=== PATIENT | female | born 1995 | race Caucasian/White ===

== ENCOUNTER 2018-07-10 20:46 | Emergency (ER) | payer OTHER ==
--- NOTE | 2018-07-10 21:04 | EDM.PDOC ---
ED HPI GENERAL MEDICAL PROBLEM - General Chief Complaint: ENT Problem Stated Complaint: SORE THROAT,FEVER Time Seen by Provider: 07/10/18 20:48 Source of Information: Reports: Patient History Limitations: Reports: No Limitations - History of Present Illness INITIAL COMMENTS - FREE TEXT/NARRATIVE: HISTORY AND PHYSICAL: History of present illness: Patient is a 23-year-old female who presents to the emergency room today with complaints of sore throat, fever and body aches. She denies any chest pain, shortness of breath or cough. Denies any abdominal pain, nausea, vomiting, diarrhea, constipation or dysuria. Denies any chance of . She has been able to eat and drink appropriately. Review of systems: As per history of present illness and below otherwise all systems reviewed and negative. Past medical history: As per history of present illness and as reviewed below otherwise noncontributory. Surgical history: As per history of present illness and as reviewed below otherwise noncontributory. Social history: See social history for further information Family history: As per history of present illness and as reviewed below otherwise noncontributory. Physical exam: General: Well-developed and well-nourished 23-year-old female. Alert and oriented. Nontoxic appearing and in no acute distress. HEENT: Atraumatic, normocephalic, pupils equal and reactive bilaterally, negative for conjunctival pallor or scleral icterus, mucous membranes moist, Right TM erythema with dull light reflex, no bulging. Left TMs normal, throat clear, neck supple, nontender, trachea midline. No drooling or trismus noted. No meningeal signs. No hot potato voice noted. Lungs: Clear to auscultation, breath sounds equal bilaterally, chest nontender. Heart: S1S2, regular rate and rhythm without overt murmur Abdomen: Soft, nondistended, nontender. Negative for masses or hepatosplenomegaly. Negative for costovertebral tenderness. Pelvis: Stable nontender. Genitourinary: Deferred. Rectal: Deferred. Skin: Intact, warm, dry. No lesions or rashes noted. Extremities: Atraumatic, negative for cords or calf pain. Neurovascular unremarkable. Neuro: Awake, alert, oriented. Cranial nerves II through XII unremarkable. Cerebellum unremarkable. Motor and sensory unremarkable throughout. Exam nonfocal. Diagnostics: Strep screening, influenza Therapeutics: None Prescription: Augmentin Phenergan with Codeine Impression: Otitis media, right Plan: 1. Standard contact precautions (covering mouth while coughing, avoid sharing drinking cups and eating utensils). Please make sure you're doing good handwashing as this is contagious. 2. Please start the antibiotic tonight. Take as directed. 3. Supportive care measures such as Tylenol and/or ibuprofen for pain and fever management.Encourage small frequent sips of fluids to prevent dehydration. 4. Follow-up with your filament shaper in the next 1-2 days. Return to the ED as needed and as discussed. Definitive disposition and diagnosis as appropriate pending reevaluation and review of above. throat Pain Score (Numeric/FACES): 5 - Related Data Allergies Allergy/AdvReac Type Severity Reaction Status Date / Time No Known Allergies Allergy Verified 07/10/18 21:06 Home Meds: Home Meds . [No Known Home Meds] 07/10/18 [History] ED ROS ENT - Review of Systems Review Of Systems: ROS reveals no pertinent complaints other than HPI. ED EXAM, ENT - Physical Exam Exam: See Below (See dictation) Course - Vital Signs Last Recorded V/S: Last Vital Signs Temp 98.2 F 07/10/18 21:06 Pulse 126 H 07/10/18 21:06 Resp 18 07/10/18 21:06 BP 132/80 07/10/18 21:06 Pulse Ox 97 07/10/18 21:06 - Orders/Labs/Meds Orders: Active Orders 24 hr Category Date Time Status CULTURE STREP A CONFIRMATION [] Stat Lab 07/10/18 21:00 Results STREP SCRN A RAPID W CULT CONF [RM] Stat Lab 07/10/18 21:00 Results Departure - Departure Time of Disposition: 21:46 Disposition: Home, Self-Care 01 Clinical Impression: Otitis media Qualifiers: Otitis media type: suppurative Chronicity: acute Laterality: right Recurrence: non-recurrent Spontaneous tympanic membrane rupture: without spontaneous rupture Qualified Code(s): H66.001 - Acute suppurative otitis media without spontaneous rupture of ear drum, right ear - Discharge Information Instructions: Otitis Media, Adult, [id number] Referrals: PCP,None [Primary Care Provider] - Forms: ED Department Discharge Additional Instructions: The following information is given to patients seen in the emergency department who are being discharged to home. This information is to outline your options for follow-up care. We provide all patients seen in our emergency department with a follow-up referral. The need for follow-up, as well as the timing and circumstances, are variable depending upon the specifics of your emergency department visit. If you don't have a primary care physician on staff, we will provide you with a referral. We always advise you to contact your personal physician following an emergency department visit to inform them of the circumstance of the visit and for follow-up with them and/or the need for any referrals to a consulting specialist. The emergency department will also refer you to a specialist when appropriate. This referral assures that you have the opportunity for follow-up care with a specialist. All of these measure are taken in an effort to provide you with optimal care, which includes your follow-up. Under all circumstances we always encourage you to contact your private physician who remains a resource for coordinating your care. When calling for follow-up care, please make the office aware that this follow-up is from your recent emergency room visit. If for any reason you are refused follow-up, please contact the [facility] Emergency Department at and asked to speak to the emergency department charge nurse. [facility] [address] [place] [id number] [place] [address] 1. Standard contact precautions (covering mouth while coughing, avoid sharing drinking cups and eating utensils). Please make sure you're doing good handwashing as this is contagious. 2. Please start the antibiotic tonight. Take as directed. 3. Supportive care measures such as Tylenol and/or ibuprofen for pain and fever management.Encourage small frequent sips of fluids to prevent dehydration. 4. Follow-up with your filament shaper in the next 1-2 days. Return to the ED as needed and as discussed. - My Orders Last 24 Hours: My Active Orders 07/10/18 21:00 CULTURE STREP A CONFIRMATION [RM] Stat STREP SCRN A RAPID W CULT CONF [RM] Stat - Assessment/Plan Last 24 Hours: My Active Orders 07/10/18 21:00 CULTURE STREP A CONFIRMATION [RM] Stat STREP SCRN A RAPID W CULT CONF [RM] Stat
== END 2018-07-10 21:55 | disposition home or self-care (01) ==
LOC: MW.ED 20:46
DX: H66.001 Acute suppurative otitis media without spontaneous rupture of ear drum, right ear (principal)
CPT/HCPCS: 87081; 87804; 87880-QW; 99283

== ENCOUNTER 2020-03-23 22:49 | Emergency (ER) | payer OTHER ==
[2020-03-23] MEDS ORDERED: Sodium Chloride 0.9% 10 ML Syringe FLUSH PRN (23:05)
[2020-03-23] MEDS ORDERED: Sodium Chloride 0.9% 2.5 ML Syringe FLUSH PRN (23:05)
[2020-03-23] MEDS ORDERED: diphenhydrAMINE 50 MG/ML SDV IVPUSH ONE (23:08)
[2020-03-23] MEDS ORDERED: Acetaminophen 325 MG Tab PO ONE (23:08)
[2020-03-23] MEDS ORDERED: cefTRIAXone 2 GM in Premix Bag 1 BAG IV ONE (23:08)
[2020-03-23] MEDS ORDERED: Metoclopramide 10 MG/2 ML SDV IVPUSH ONE (23:08)
--- NOTE | 2020-03-23 23:13 | EDM.PDOC ---
ED [facility] GENERAL MEDICAL PROBLEM - General Chief Complaint: Fever Stated Complaint: 15 WKS , FEVER, RT SIDE PAIN Time Seen by Provider: 03/23/20 22:58 - History of Present Illness INITIAL COMMENTS - FREE TEXT/NARRATIVE: HISTORY AND PHYSICAL: History of present illness: This 25-year-old female is currently 15 weeks and presents to the emergency department after having flu shot at her [facility]ANQUET CHEF's office. This after noon she developed suprapubic pain, fever, and tachycardia and started feeling worse. She took Tylenol around 5 PM but presents feeling ill. She has nausea, right-sided flank pain, suprapubic pain, and frequent urination. She denies any dysuria. No cough. No diarrhea. No vaginal bleeding or discharge. Her OB appointment today was essentially normal. No other associated signs or symptoms. No other modifying, aggravating or relieving factors. Review of systems: A 10-point review of systems, other than pertinent positives and negatives as stated per HPI, is otherwise negative. Past medical history: As per history of present illness and as reviewed below otherwise noncontributory. Surgical history: As per history of present illness and as reviewed below otherwise noncontributory. Social history: No reported history of drug or alcohol abuse. Family history: As per history of present illness and as reviewed below otherwise noncontributory. Physical exam: VITAL SIGNS: Reviewed. GENERAL: Appears moderately ill and is tachycardic to the 150s. HEAD: No signs of head trauma. EYES: Pupils are equal. Extraocular motions intact. EARS: Hearing grossly intact. MOUTH: Oropharynx is normal. NECK: No adenopathy, no JVD. CHEST: Chest with clear breath sounds bilaterally. No wheezes, rales, or rhonchi. CARDIAC: Regular rate and rhythm. Normal S1 and S2, without murmurs, gallops, or rubs. VASCULAR: Peripheral pulses normal and equal in all extremities. ABDOMEN: Gravid, soft otherwise, no masses other than a gravid uterus palpated easily at the level about the umbilicus, suprapubic tenderness is present. No rebound or guarding. Mild left-sided CVA tenderness. MUSCULOSKELETAL: Good range of motion of all major joints. Extremities without clubbing, cyanosis or edema. NEUROLOGIC EXAM: Alert and oriented x 3. No focal sensory or motor deficits. Speech normal. Follows commands. PSYCHIATRIC: Mood normal. SKIN: No rash or lesions. Initial Differential Diagnosis & Plan: Patient has acute febrile illness this is likely pyelonephritis, other etiologies considered including appendicitis, cystitis, reaction to her influenza vaccine, COVID-19 infection. I will give empiric antibiotics including 2 g of ceftriaxone, draw labs, I have activated code sepsis and started IV fluid resuscitation. UA, comprehensive metabolic panel, CBC, lactate, blood cultures pending. Definitive disposition and diagnosis as appropriate pending reevaluation and review of above. Right Abdomen Pain Score (Numeric/FACES): 7 - Related Data Allergies Allergy/AdvReac Type Severity Reaction Status Date / Time azithromycin Allergy Hives Verified 03/23/20 23:08 Home Meds: Home Meds Cyanocobalamin (Vitamin B12) [Vitamin B12] 1,000 mcg PO DAILY 03/23/20 [History] Ferrous Sulfate [Iron] 325 mg PO DAILY 03/23/20 [History] Ondansetron [Zofran] 4 mg PO DAILY 03/23/20 [History] Vits #93/Iron Fum/FA [ Formula Tablet] 1 tab PO DAILY 03/23/20 [History] Past Medical History HEENT History: Reports: None Cardiovascular History: Reports: None Gastrointestinal History: Reports: None Genitourinary History: Reports: None [facility] History: Reports: Musculoskeletal History: Reports: None Neurological History: Reports: None Psychiatric History: Reports: Anxiety, Depression Endocrine/Metabolic History: Reports: None Hematologic History: Reports: None Immunologic History: Reports: None Oncologic (Cancer) History: Reports: None Dermatologic History: Reports: None - Infectious Disease History Infectious Disease History: Reports: None - Past Surgical History Musculoskeletal Surgical History: Reports: Other (See Below) Other Musculoskeletal Surgeries/Procedures:: fracture femur Social & Family History - Family History Family Medical History: Noncontributory ED ROS GENERAL - Review of Systems Review Of Systems: See Below (noted) ED EXAM, SEPSIS - Physical Exam Exam: See Below (noted) ED SEPSIS PROCEDURES - Additional/Other Procedure(s) Other (Free Text) Procedure(s): PROCEDURE NOTE: Limited OB / Pelvic Ultrasound (transabdominal) Indication: Confirm a live IUP All images obtained and evaluated by me. Images archived and saved. Findings: 1. Uterus Identified 2. No significant Free Fluid Noted 3. Intrauterine identified 4. heart tones measured with M-mode 175 Interpretation: Live IUP Signed by Behzad Pereyra M.D. EKG INTERPRETATION EKG Interpretation Comments: 12 lead EKG interpretation Obtained: March 23, 2020 at 11:30 PM Rhythm: Sinus tachycardia Rate: 130 [place]: Normal Intervals: Normal ST/T Segments: No acute ischemic changes Interpretation: Sinus tachycardia Course - Vital Signs Last Recorded V/S: Last Vital Signs Temp 100.2 F 03/24/20 02:00 Pulse 110 H 03/24/20 02:00 Resp 20 03/24/20 02:00 BP 102/54 L 03/24/20 02:00 Pulse Ox 97 03/24/20 02:00 - Orders/Labs/Meds Orders: Active Orders 24 hr Category Date Time Status Blood Pressure Mgt: Sepsis [RC] Q15MX2 Care 03/23/20 23:06 Active Cardiac Monitoring [RC] CONTINUOUS Care 03/23/20 23:06 Active EKG Documentation Completion [RC] STAT Care 03/23/20 23:05 Active Overnight Pulse Oximetry [RC] Click to Edit Care 03/23/20 23:06 Active CULTURE BLOOD [BC] Stat Lab 03/23/20 23:15 Received CULTURE BLOOD [BC] Stat Lab 03/23/20 23:53 Received Sodium Chloride 0.9% [Saline Flush] Med 03/23/20 23:05 Active 10 ml FLUSH ASDIRECTED PRN Sodium Chloride 0.9% [Saline Flush] Med 03/23/20 23:05 Active 2.5 ml FLUSH ASDIRECTED PRN Blood Culture x2 Reflex Set [OM.PC] Stat Oth 03/23/20 23:06 Ordered Pulse Oximetry Continuous Monitoring [OM.PC] Routine Oth 03/23/20 23:05 Ordered Saline Lock Insert [OM.PC] Stat Oth 03/23/20 23:06 Ordered Severe Sepsis Onset Time [OM.PC] Stat Oth 03/23/20 23:06 Ordered Medication Orders Sodium Chloride (Saline Flush) 10 ml FLUSH ASDIRECTED PRN PRN Reason: Keep Vein Open Sodium Chloride (Saline Flush) 2.5 ml FLUSH ASDIRECTED PRN PRN Reason: Keep Vein Open Labs: Laboratory Tests 03/23/20 03/23/20 03/23/20 Range/Units 23:08 23:15 23:15 WBC 8.99 (4.0-11.0) K/uL RBC 4.49 (4.30-5.90) M/uL Hgb 13.1 (12.0-16.0) g/dL Hct 39.3 (36.0-46.0) % MCV 87.5 (80.0-98.0) fL MCH 29.2 (27.0-32.0) pg MCHC 33.3 (31.0-37.0) g/dL RDW Std Deviation 42.1 (28.0-62.0) fl RDW Coeff of Oscar 13 (11.0-15.0) % Plt Count 167 (150-400) K/uL MPV 11.80 (7.40-12.00) fL Neut % (Auto) 90.4 H (48.0-80.0) % Lymph % (Auto) 4.3 L (16.0-40.0) % [place] % (Auto) 4.9 (0.0-15.0) % Eos % (Auto) 0.3 (0.0-7.0) % Baso % (Auto) 0.1 (0.0-1.5) % Neut # (Auto) 8.1 H (1.4-5.7) K/uL Lymph # (Auto) 0.4 L (0.6-2.4) K/uL [place] # (Auto) 0.4 (0.0-0.8) K/uL Eos # (Auto) 0.0 (0.0-0.7) K/uL Baso # (Auto) 0.0 (0.0-0.1) K/uL Nucleated RBC % 0.0 /100WBC Nucleated RBCs # 0 K/uL INR 1.01 Lactate (0.20-2.00) mmol/L Sodium (136-145) mmol/L Potassium (3.5-5.1) mmol/L Chloride (98-107) mmol/L Carbon Dioxide (21.0-32.0) mmol/L BUN (7.0-18.0) mg/dL Creatinine (0.6-1.0) mg/dL Est Cr Clr Drug Dosing mL/min Estimated GFR (MDRD) ml/min Glucose (74-106) mg/dL Calcium (8.5-10.1) mg/dL Total Bilirubin (0.2-1.0) mg/dL AST (15-37) IU/L ALT (14-63) IU/L Alkaline Phosphatase (46-116) U/L Total Protein (6.4-8.2) g/dL Albumin (3.4-5.0) g/dL Globulin (2.6-4.0) g/dL Albumin/Globulin Ratio (0.9-1.6) Urine Color YELLOW Urine Appearance CLEAR Urine pH 5.5 (5.0-8.0) Ur Specific Angelica 1.010 (1.001-1.035) Urine Protein NEGATIVE (NEGATIVE) mg/dL Urine Glucose (UA) NEGATIVE (NEGATIVE) mg/dL Urine Ketones NEGATIVE (NEGATIVE) mg/dL Urine Occult Blood NEGATIVE (NEGATIVE) Urine Nitrite NEGATIVE (NEGATIVE) Urine Bilirubin NEGATIVE (NEGATIVE) Urine Urobilinogen 0.2 (<2.0) EU/dL Ur Leukocyte Esterase NEGATIVE (NEGATIVE) Urine RBC NONE SEEN (0-2/HPF) Urine WBC 0-1 (0-5/HPF) Ur Epithelial Cells RARE (NONE-FEW) Urine Bacteria RARE (NEGATIVE) Urine Mucus LIGHT (NONE-MOD) 03/23/20 03/23/20 Range/Units 23:15 23:15 WBC (4.0-11.0) K/uL RBC (4.30-5.90) M/uL Hgb (12.0-16.0) g/dL Hct (36.0-46.0) % MCV (80.0-98.0) fL MCH (27.0-32.0) pg MCHC (31.0-37.0) g/dL RDW Std Deviation (28.0-62.0) fl RDW Coeff of Oscar (11.0-15.0) % Plt Count (150-400) K/uL MPV (7.40-12.00) fL Neut % (Auto) (48.0-80.0) % Lymph % (Auto) (16.0-40.0) % [place] % (Auto) (0.0-15.0) % Eos % (Auto) (0.0-7.0) % Baso % (Auto) (0.0-1.5) % Neut # (Auto) (1.4-5.7) K/uL Lymph # (Auto) (0.6-2.4) K/uL [place] # (Auto) (0.0-0.8) K/uL Eos # (Auto) (0.0-0.7) K/uL Baso # (Auto) (0.0-0.1) K/uL Nucleated RBC % /100WBC Nucleated RBCs # K/uL INR Lactate 1.6 (0.20-2.00) mmol/L Sodium 130 L (136-145) mmol/L Potassium 3.4 L (3.5-5.1) mmol/L Chloride 99 (98-107) mmol/L Carbon Dioxide 21.8 (21.0-32.0) mmol/L BUN 4 L (7.0-18.0) mg/dL Creatinine 0.7 (0.6-1.0) mg/dL Est Cr Clr Drug Dosing 119.47 mL/min Estimated GFR (MDRD) > 60.0 ml/min Glucose 87 (74-106) mg/dL Calcium 8.9 (8.5-10.1) mg/dL Total Bilirubin 0.4 (0.2-1.0) mg/dL AST 22 (15-37) IU/L ALT 23 (14-63) IU/L Alkaline Phosphatase 55 (46-116) U/L Total Protein 7.3 (6.4-8.2) g/dL Albumin 3.5 (3.4-5.0) g/dL Globulin 3.8 (2.6-4.0) g/dL Albumin/Globulin Ratio 0.9 (0.9-1.6) Urine Color Urine Appearance Urine pH (5.0-8.0) Ur Specific Angelica (1.001-1.035) Urine Protein (NEGATIVE) mg/dL Urine Glucose (UA) (NEGATIVE) mg/dL Urine Ketones (NEGATIVE) mg/dL Urine Occult Blood (NEGATIVE) Urine Nitrite (NEGATIVE) Urine Bilirubin (NEGATIVE) Urine Urobilinogen (<2.0) EU/dL Ur Leukocyte Esterase (NEGATIVE) Urine RBC (0-2/HPF) Urine WBC (0-5/HPF) Ur Epithelial Cells (NONE-FEW) Urine Bacteria (NEGATIVE) Urine Mucus (NONE-MOD) Meds: Medications Generic Name Dose Route Start Last Admin Trade Name Freq PRN Reason Stop Dose Admin Sodium Chloride 10 ml 03/23/20 23:05 Saline Flush FLUSH ASDIRECTED PRN Keep Vein Open Sodium Chloride 2.5 ml 03/23/20 23:05 Saline Flush FLUSH ASDIRECTED PRN Keep Vein Open Discontinued Medications Generic Name Dose Route Start Last Admin Trade Name Kelvin PRN Reason Stop Dose Admin Acetaminophen 975 mg 03/23/20 23:08 03/23/20 23:36 Tylenol PO 03/23/20 23:09 975 mg NOW ONE Administration Diphenhydramine HCl 25 mg 03/23/20 23:08 03/23/20 23:38 Benadryl IVPUSH 03/23/20 23:09 25 mg ONETIME ONE Administration Sodium Chloride 2,550 mls @ 2,550 mls/hr 03/23/20 23:05 03/23/20 23:41 Normal Saline IV 03/24/20 00:04 2,550 mls/hr BOLUS ONE Administration Protocol Ceftriaxone Sodium/Dextrose 2 50 mls @ 100 mls/hr 03/23/20 23:08 03/23/20 23:40 gm/ Premix IV 03/23/20 23:37 100 mls/hr ONETIME ONE Administration Iopamidol 100 ml 03/24/20 01:58 03/24/20 01:59 Isovue-370 (76%) IVPUSH 03/24/20 01:59 100 ml ONETIME STA Administration Metoclopramide HCl 10 mg 03/23/20 23:08 03/23/20 23:39 Reglan IVPUSH 03/23/20 23:09 10 mg ONETIME ONE Administration - Re-Assessments/Exams Free Text/Narrative Re-Assessment/Exam: 03/24/20 00:[address] Toyin Friedman about 45 minutes ago she recommended obtaining an ultrasound for appendicitis. I been at the bedside with the human performance technologist and were not able to locate the appendix. The right ovary is visible in the area and has good flow and no evidence of enlargement. Given these findings I obtained consent from the patient to obtain a CT abdomen pelvis with IV contrast to evaluate for appendicitis. She is [address] Friedman felt that this was a reasonable risk given the presentation of fever, tachycardia, severe right lower quadrant tenderness. The patient does not have a leukocytosis however this is a nonspecific finding in the setting of possible appendicitis. The patient's UA is essentially normal and there is no evidence of jairo lonephritis. We will obtain a CT scan at this time. The patient was given empiric antibiotics. Free Text/Narrative Re-Assessment/Exam: 03/24/20 02:25 Relieved to know that she does not have acute appendicitis. White count is normal. Because of her acute febrile illness is still unclear. This could be secondary to her vaccination and having a very brisk response, this could be secondary to a more insidious etiology. UA is negative. There is no cough. She does not have tachypnea or hypoxemia consistent with COVID-19 infection, there is no adnexal mass or evidence of ovarian torsion. No evidence of intrauterine infection. Given these findings we will send her home. She was given 2 g of ceftriaxone and blood cultures are pending. My diagnostic impression: 1. Acute febrile illness 2. Early sepsis/sirs criteria unclear etiology or source 3. Right lower quadrant tenderness with CT negative for acute appendicitis 4. 15 weeks Departure - Departure Time of Disposition: 02:27 Disposition: Home, Self-Care 01 Clinical Impression: Acute febrile illness, Right lower quadrant abdominal pain, - Discharge Information *PRESCRIPTION DRUG MONITORING PROGRAM REVIEWED*: Not Applicable *COPY OF PRESCRIPTION DRUG MONITORING REPORT IN PATIENT [place]: Not Applicable Instructions: Fever, Adult, [id number] Referrals: PCP,None [Primary Care Provider] - Forms: ED Department Discharge Additional Instructions: The following information is given to patients seen in the emergency department who are being discharged to home. This information is to outline your options for follow-up care. We provide all patients seen in our emergency department with a follow-up referral. The need for follow-up, as well as the timing and circumstances, are variable depending upon the specifics of your emergency department visit. If you don't have a primary care physician on staff, we will provide you with a referral. We always advise you to contact your personal physician following an emergency department visit to inform them of the circumstance of the visit and for follow-up with them and/or the need for any referrals to a consulting specialist. The emergency department will also refer you to a specialist when appropriate. This referral assures that you have the opportunity for follow-up care with a specialist. All of these measure are taken in an effort to provide you with optimal care, which includes your follow-up. Thank you for coming to the [facility] urgency department for your care today. It was Dr. Pereyra's pleasure to take care of you. [facility] [address] [place] [id number] [facility] [address] [place] [id number] Please follow-up with your [facility] physician or primary care doctor. We have done a comprehensive work-up and evaluation for your acute fever. It is unclear as to the reason you are having fever and could be secondary to your vaccination however this is unlikely. He did have significant right lower quadrant tenderness and we obtained a CT scan of your abdomen and pelvis to determine if he had appendicitis. Your CT scan was negative. Your urine test did not show evidence of infection. Your blood cultures are pending. You were given empiric antibiotics to help with your underlying symptoms. Return if you have worsening or any other concerns. We are always happy to see you. Under all circumstances we always encourage you to contact your private physician who remains a resource for coordinating your care. When calling for follow-up care, please make the office aware that this follow-up is from your recent emergency room visit. If for any reason you are refused follow-up, please contact the [facility] Emergency Department at and asked to speak to the emergency department charge nurse. Sepsis Event Note (ED) - Evaluation Sepsis Screening Result: No Definite Risk - Focused Exam Vital Signs: Vital Signs Temp Pulse Resp BP Pulse Ox 03/24/20 02:00 100.2 F 110 H 20 102/54 L 97 03/24/20 00:35 122 H 18 117/54 L 97 03/24/20 00:21 101.3 F H 03/23/20 23:45 124 H 20 127/71 97 03/23/20 23:03 101.1 F H 144 H 18 142/84 H 97 - My Orders Last 24 Hours: My Active Orders 03/23/20 23:05 EKG Documentation Completion [RC] STAT Sodium Chloride 0.9% [Saline Flush] 10 ml FLUSH ASDIRECTED PRN Sodium Chloride 0.9% [Saline Flush] 2.5 ml FLUSH ASDIRECTED PRN Pulse Oximetry Continuous Monitoring [OM.PC] Routine 03/23/20 23:06 Blood Pressure Mgt: Sepsis [RC] Q15MX2 Cardiac Monitoring [RC] CONTINUOUS Overnight Pulse Oximetry [RC] Click to Edit Blood Culture x2 Reflex Set [OM.PC] Stat Saline Lock Insert [OM.PC] Stat Severe Sepsis Onset Time [OM.PC] Stat 03/23/20 23:15 CULTURE BLOOD [BC] Stat 03/23/20 23:53 CULTURE BLOOD [BC] Stat - Assessment/Plan Last 24 Hours: My Active Orders 03/23/20 23:05 EKG Documentation Completion [RC] STAT Sodium Chloride 0.9% [Saline Flush] 10 ml FLUSH ASDIRECTED PRN Sodium Chloride 0.9% [Saline Flush] 2.5 ml FLUSH ASDIRECTED PRN Pulse Oximetry Continuous Monitoring [OM.PC] Routine 03/23/20 23:06 Blood Pressure Mgt: Sepsis [RC] Q15MX2 Cardiac Monitoring [RC] CONTINUOUS Overnight Pulse Oximetry [RC] Click to Edit Blood Culture x2 Reflex Set [OM.PC] Stat Saline Lock Insert [OM.PC] Stat Severe Sepsis Onset Time [OM.PC] Stat 03/23/20 23:15 CULTURE BLOOD [BC] Stat 03/23/20 23:53 CULTURE BLOOD [BC] Stat
[2020-03-23 23:59] LABS: BLOOD UREA NITROGEN,BUN 4 mg/dL (7.0-18.0); CARBON DIOXIDE,CO2 21.8 mmol/L (21.0-32.0); CHLORIDE,CL 99 mmol/L (98-107); GLUCOSE RANDOM 87 mg/dL (74-106); POTASSIUM,K 3.4 mmol/L (3.5-5.1); SODIUM,NA 130 mmol/L (136-145)
--- NOTE | 2020-03-24 01:26 | US ---
INDICATION: , fever TECHNIQUE: Ultrasound abdomen limited. Sonographic images of the right flank were obtained using pavon-scale and color Doppler images. COMPARISON: None FINDINGS: Liver: Normal in size and echotexture. No masses. No intrahepatic biliary dilatation. Gallbladder: No stones or sludge. Normal wall thickness. No pericholecystic fluid. Common bile duct: 3 mm. Pancreas: Normal. Right kidney: Normal in size. Normal echotexture and cortex. No masses, stones, or hydronephrosis. Vasculature: Proximal abdominal aorta and IVC are normal. Intrauterine gestation noted. Maternal right ovary unremarkable. Appendix not seen. IMPRESSION: 1. Appendix not seen with shadowing bowel gas in the right lower quadrant. 2. Otherwise unremarkable ultrasound of the right upper quadrant and right lower quadrant. Dictated by Spencer Thibodeaux MD @ Mar 24 2020 1:15AM Signed by Dr. Spencer Thibodeaux @ Mar 24 2020 1:26AM
[2020-03-24] MEDS ORDERED: Iopamidol 755 Mg/ML 100 ML Bottle IVPUSH STA (01:58)
--- NOTE | 2020-03-24 02:11 | CT ---
INDICATION: Right lower quadrant pain TECHNIQUE: Axial images were obtained from the diaphragm to the pubic symphysis. Examination is submitted for remote interpretation already performed per rubber gasket inspector trimmer recommendation. Reformats were obtained in the coronal and sagittal plane. IV Contrast: 100 cc Isovue 370 Oral Contrast: None COMPARISON: None. FINDINGS: Lower chest: Unremarkable. Liver: Unremarkable. Normal in size and attenuation. No masses. Gallbladder and bile ducts: Unremarkable. No stones or inflammation. No biliary dilatation. Spleen: Unremarkable. Normal in size without mass. Pancreas: Unremarkable. No mass or inflammation. Adrenal glands: Unremarkable. No nodules. Kidneys: Unremarkable. No masses, stones, or hydronephrosis. Vasculature: Unremarkable. GI tract: No dilated loops of large or small intestine. Appendix identified in the right lower quadrant measuring 6 millimeters with air seen to the level of the appendiceal tip. Pelvis: Bladder unremarkable. Enlarged uterus consistent with . Anterior placenta. Intrauterine gestation in vertex position. No adnexal mass seen. Bones: Intramedullary roque within the right femur. IMPRESSION: 1. No dilated loops of large or small intestine. Normal appendix. 2. No adnexal mass seen. 3. Enlarged uterus with intrauterine gestation. Please note that all CT scans at this facility use dose modulation, iterative reconstruction, and/or weight-based dosing when appropriate to reduce radiation dose to as low as reasonably achievable. Dictated by Spencer Thibodeaux MD @ Mar 24 2020 2:04AM Signed by Dr. Spencer Thibodeaux @ Mar 24 2020 2:09AM
== END 2020-03-24 02:40 | disposition home or self-care (01) ==
LOC: MW.ED 22:49
DX: O98.812 Other maternal infectious and parasitic diseases complicating pregnancy, second trimester (principal); A41.9 Sepsis, unspecified organism; O99.112 Other diseases of the blood and blood-forming organs and certain disorders involving the immune mechanism complicating pregnancy, second trimester; D72.829 Elevated white blood cell count, unspecified; R50.9 Fever, unspecified; Z88.1 Allergy status to other antibiotic agents; Z3A.15 15 weeks gestation of pregnancy
CPT/HCPCS: 36415; 74177; 76705; 80053; 81001; 83605; 85025; 85610; 87040; 93005; 96361; 96365; 96375; 99284; A9270; J0696; J1200; J2765; J7030; Q9967; 99285

== ENCOUNTER 2020-08-22 12:11 | Emergency (ER) | payer BC ==
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
--- NOTE | 2020-08-22 13:03 | CR ---
INDICATION: All TECHNIQUE: Lumbar spine 2 view. COMPARISON: None FINDINGS: Bones: Straightening of the lumbar spine with normal alignment. No fractures or significant bone lesions. Joints: Disc spaces and facets are unremarkable. Soft tissues: Unremarkable. Miscellaneous: Single gestation noted with cephalic presentation. IMPRESSION: No evidence of acute lumbar spine trauma. Single gestation noted with cephalic presentation. Dictated by Kahlil Romero MD @ Aug 22 2020 1:01PM Signed by Dr. Kahlil Romero @ Aug 22 2020 1:01PM
== END 2020-08-22 12:23 | disposition still patient (30) ==
LOC: MW.ED 12:11
DX: O99.891 Other specified diseases and conditions complicating pregnancy (principal); M54.5 Low back pain; O24.419 Gestational diabetes mellitus in pregnancy, unspecified control; Z88.1 Allergy status to other antibiotic agents; Z3A.36 36 weeks gestation of pregnancy; W10.8XXA Fall (on) (from) other stairs and steps, initial encounter; Y93.01 Activity, walking, marching and hiking
CPT/HCPCS: 72100; 72100-26; 82962; 99284; 99284-25

== ENCOUNTER 2020-09-10 08:22 | Inpatient (IN) | payer BC ==
[2020-09-10] MEDS ORDERED: Water For Irrigation,Sterile 1,000 ML Container IRR PRN (08:42)
[2020-09-10] MEDS ORDERED: Lidocaine 1% 50 ML MDV INJECT PRN (08:42)
[2020-09-10] MEDS ORDERED: Ampicillin 2 GM in Sodium Chloride 0.9% 100 ML IV ONE (08:42)
[2020-09-10] MEDS ORDERED: Nalbuphine 10 MG/1 ML Vial IVPUSH PRN (08:42)
[2020-09-10] MEDS ORDERED: Tranexamic Acid 1,000 MG in Sodium Chloride 0.9% 100 ML IV PRN (08:42)
[2020-09-10] MEDS ORDERED: Carboprost Tromethamine 250 MCG/1 ML Amp IM PRN (08:42)
[2020-09-10] MEDS ORDERED: Butorphanol 1 MG/ML SDV IVPUSH PRN (08:42)
[2020-09-10] MEDS ORDERED: Misoprostol 200 MCG Tab PO PRN (08:42)
[2020-09-10] MEDS ORDERED: Sodium Chloride 0.9% 10 ML Syringe FLUSH PRN (08:42)
[2020-09-10] MEDS ORDERED: Methylergonovine 0.2 MG/1 ML Amp IM PRN (08:42)
[2020-09-10] MEDS ORDERED: Sodium Chloride 0.9% 2.5 ML Syringe FLUSH PRN (08:42)
[2020-09-10] MEDS ORDERED: Sodium Chloride 0.9% 10 ML SDV IV PRN (08:42)
[2020-09-10] MEDS ORDERED: Oxytocin/0.9 % Sodium Chloride 30 UNIT/500 ML BAG IV SCH ×2 (08:45→09:00)
[2020-09-10] MEDS ORDERED: Terbutaline 1 MG/ML SDV SUBCUT PRN (08:48)
[2020-09-10] MEDS: Lactated Ringers 1,000 ML IV SCH ×2 (09:21→15:17)
[2020-09-10] MEDS ORDERED: Ampicillin 1 GM in Sodium Chloride 0.9% 50 ML IV SCH (13:00)
[2020-09-10] MEDS ORDERED: Ampicillin 1 GM Vial ONE (13:16)
[2020-09-10] MEDS ORDERED: Sodium Chloride 0.9% 50 ML ONE (13:17)
[2020-09-10] MEDS ORDERED: fentaNYL 100 MCG/2 ML SDV ONE ×2 (14:59→16:32)
[2020-09-10] MEDS ORDERED: Ropivacaine HCl/PF 100 ML ONE (15:00)
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
--- NOTE | 2020-09-10 15:25 | PCM.PRNOTE ---
- Free Text/Narrative Note: Anes Note Patient requests epidural for L&D. Siting position. Level L3-L4 midline approach. Sterile technique. Chloraprep scrub to lumbar area. Sterile fenestrated drape applied. Epidural space easily achieved single attempt with ease using ROSALINDA technique. ROSALINDA at 3 cm. Cath threaded 5 cm with ease. Cath secured at skin using sterile clear adhesive dressing. 1514 Test 3 cc 1.5% lido with epi negative. 1517 Load 10 cc 0.2% ropiviciane with 1 mcg cc fentanyl in slow divided doses. 1524 Pump started with 90 cc same solution. rate is 8 cc hr wiht 6 cc q 20 min prn bolus. Cordelia well. Time with patient [id number] Say Givens TRIPLE DRUM OPERATOR
[2020-09-10] MEDS ORDERED: Lidocaine 2% with EPINEPHrine 1:200,000 20 ML SDV ONE (15:27)
[2020-09-10] MEDS ORDERED: Bupivacaine 0.5% 30 ML SDV ONE (16:32)
--- NOTE | 2020-09-10 16:43 | PCM.PRNOTE ---
- Free Text/Narrative Note: Anes Note Patient reports incomplete analgesia left side. Epidural cath pulled back 1 cm and a new sterile dressing was applied. A top up dose of 100 mcg fentanyl plus 5 cc 0.5% bupivicaine was slowly injected in divided doses. Time with patient [id number] Say Givens CRNA
[2020-09-10] MEDS ORDERED: Docusate Sodium 100 MG Cap PO PRN (17:46)
[2020-09-10] MEDS ORDERED: Ibuprofen 400 MG Tab PO PRN (17:46)
[2020-09-10] MEDS ORDERED: Witch Hazel Medicated Pads 40/Jar TOP PRN (17:46)
[2020-09-10] MEDS ORDERED: Acetaminophen 500 MG Tab PO PRN (17:46)
[2020-09-10] MEDS ORDERED: Lanolin 100% Cream 7 GM Tube TOP PRN (17:46)
[2020-09-10] MEDS ORDERED: Benzocaine/Menthol 20%-0.5% Spray 78 GM Cannister TOP PRN (17:46)
[2020-09-10] MEDS ORDERED: Bisacodyl 10 MG Supp RECTAL PRN (17:46)
--- NOTE | 2020-09-10 17:55 | PCM.DEL ---
L & D Note - General Info Date of Service: 09/10/20 Mother's Due Date: 09/16/20 - Delivery Note Labor: Augmented by ARM, Augmented by Oxytocin Delivery Outcome: Livebirth Delivery Method: Spontaneous Vaginal Delivery-Single Nuchal Cord: None Anesthesia Type: None Anesthetic: Lidocaine (Xylocaine) 1% Plain Amniotic Fluid Description: Clear Episiotomy Type: None Laceration: 2nd Degree Suture type: Other (monocryl) Suture size: 3-0 Placenta: Intact Cord: 3 Vessels Estimated Blood Loss: 300 Resuscitation Needed: No Score 1 min: 8 Score 5 min: 9 Delivery Comments (Free Text/Narrative):: Patient delivered i was in the room with the assistance of RN Fiorella Phillips Live male delivered at 1646 , 8/9 weight 3360g - General Info Date of Service: 09/10/20 - Patient Data Weight - Most Recent: 87.997 kg Lab Results Last 24 Hours: Laboratory Results - last 24 hr 09/10/20 09/10/20 09/10/20 Range/Units 09:00 09:05 09:50 WBC 9.16 (4.0-11.0) K/uL RBC 4.36 (4.30-5.90) M/uL Hgb 12.0 (12.0-16.0) g/dL Hct 37.1 (36.0-46.0) % MCV 85.1 (80.0-98.0) fL MCH 27.5 (27.0-32.0) pg MCHC 32.3 (31.0-37.0) g/dL RDW Std Deviation 43.7 (28.0-62.0) fl RDW Coeff of Oscar 14 (11.0-15.0) % Plt Count 198 (150-400) K/uL MPV 12.60 H (7.40-12.00) fL Nucleated RBC % 0.0 /100WBC Nucleated RBCs # 0 K/uL POC Glucose (60-110) mg/dL SARS-CoV-2 RNA (WILL) NEGATIVE (NEGATIVE) Blood Type O POSITIVE Antibody Screen NEGATIVE 09/10/20 09/10/20 09/10/20 Range/Units 10:02 11:59 14:22 WBC (4.0-11.0) K/uL RBC (4.30-5.90) M/uL Hgb (12.0-16.0) g/dL Hct (36.0-46.0) % MCV (80.0-98.0) fL MCH (27.0-32.0) pg MCHC (31.0-37.0) g/dL RDW Std Deviation (28.0-62.0) fl RDW Coeff of Oscar (11.0-15.0) % Plt Count (150-400) K/uL MPV (7.40-12.00) fL Nucleated RBC % /100WBC Nucleated RBCs # K/uL POC Glucose 98 80 95 (60-110) mg/dL SARS-CoV-2 RNA (WILL) (NEGATIVE) Blood Type Antibody Screen 09/10/20 Range/Units 16:00 WBC (4.0-11.0) K/uL RBC (4.30-5.90) M/uL Hgb (12.0-16.0) g/dL Hct (36.0-46.0) % MCV (80.0-98.0) fL MCH (27.0-32.0) pg MCHC (31.0-37.0) g/dL RDW Std Deviation (28.0-62.0) fl RDW Coeff of Oscar (11.0-15.0) % Plt Count (150-400) K/uL MPV (7.40-12.00) fL Nucleated RBC % /100WBC Nucleated RBCs # K/uL POC Glucose 83 (60-110) mg/dL SARS-CoV-2 RNA (WILL) (NEGATIVE) Blood Type Antibody Screen Med Orders - Current: Current Medications Acetaminophen (Acetaminophen 500 Mg Tab) 500 mg PO Q4H PRN PRN Reason: Pain Acetaminophen (Acetaminophen 500 Mg Tab) 1,000 mg PO Q4H PRN PRN Reason: Pain Benzocaine/Menthol (Benzocaine/Menthol 20%-0.5% Martha 78 Gm Cannister) 78 gm TOP ASDIRECTED PRN PRN Reason: Perineal Comfort Measure Bisacodyl (Bisacodyl 10 Mg Supp) 10 mg RECTAL ONETIME PRN PRN Reason: Constipation Butorphanol Tartrate (Butorphanol 1 Mg/Ml Sdv) 1 mg IVPUSH Q1H PRN PRN Reason: Pain Carboprost Tromethamine (Carboprost Tromethamine 250 Mcg/1 Ml Amp) 250 mcg IM ASDIRECTED PRN PRN Reason: Post Hemorrhage Docusate Sodium (Docusate Sodium 100 Mg Cap) 100 mg PO BID PRN PRN Reason: Constipation Emollient Ointment (Lanolin 100% Cream 7 Gm Tube) 0 gm TOP ASDIRECTED PRN PRN Reason: Sore Nipples Oxytocin/Sodium Chloride (Oxytocin 30 Unit/500 Ml-Ns) 30 unit in 500 mls @ 500 mls/hr IV TITRATE [facility] Last Admin: 09/10/20 17:35 Dose: 250 mls/hr Documented by: Tranexamic Acid 1,000 mg/ (Sodium Chloride) 110 mls @ 660 mls/hr IV ONETIME PRN PRN Reason: Bleeding Last Admin: 09/10/20 17:29 Dose: 660 mls/hr Documented by: Lactated Ringer's (Ringers, Lactated) 1,000 mls @ 150 mls/hr IV ASDIRECTED [facility] Last Admin: 09/10/20 15:17 Dose: 150 mls/hr Documented by: Insulin Human Regular 100 unit (/ Sodium Chloride) 100 mls @ 1 mls/hr IV TITRATE [facility]; Protocol Oxytocin/Sodium Chloride (Oxytocin 30 Unit/500 Ml-Ns) 30 unit in 500 mls @ 2 mls/hr IV TITRATE [facility]; Protocol Last Titration: 09/10/20 17:13 Dose: 999 munits/min, 999 mls/hr Documented by: Ampicillin Sodium 1 gm/ Sodium (Chloride) 50 mls @ 100 mls/hr IV Q4H [facility] Last Admin: 09/10/20 13:15 Dose: 100 mls/hr Documented by: Ibuprofen (Ibuprofen 400 Mg Tab) 400 mg PO Q4H PRN PRN Reason: Pain Ibuprofen (Ibuprofen 800 Mg Tab) 800 mg PO Q6H PRN PRN Reason: Pain Lidocaine HCl (Lidocaine 1% 50 Ml Mdv) 50 ml INJECT ONETIME PRN PRN Reason: Laceration repair Methylergonovine Maleate (Methylergonovine 0.2 Mg/1 Ml Amp) 0.2 mg IM ASDIRECTED PRN PRN Reason: Post Hemorrhage Misoprostol (Misoprostol 200 Mcg Tab) 200 mcg PO ONETIME PRN PRN Reason: Post Hemorrhage Nalbuphine HCl (Nalbuphine 10 Mg/1 Ml Vial) 10 mg IVPUSH Q1H PRN PRN Reason: Pain (severe 7-10) Oxycodone HCl (Oxycodone 5 Mg Tab) 5 mg PO Q2H PRN PRN Reason: Pain Sodium Chloride (Sodium Chloride 0.9% 2.5 Ml Syringe) 2.5 ml FLUSH ASDIRECTED PRN PRN Reason: Keep Vein Open Sodium Chloride (Sodium Chloride 0.9% 10 Ml Sdv) 10 ml IV ASDIRECTED PRN PRN Reason: IV Use Sterile Water (Water For Irrigation,Sterile 1,000 Ml Container) 1,000 ml IRR ASDIRECTED PRN PRN Reason: delivery Terbutaline Sulfate (Terbutaline 1 Mg/Ml Sdv) 0.25 mg SUBCUT ASDIRECTED PRN PRN Reason: Tacysystole Witch Traci (Witch Traci Medicated Pads 40/Jar) 1 pad TOP ASDIRECTED PRN PRN Reason: comfort care Discontinued Medications Ampicillin Sodium (Ampicillin 1 Gm Vial) Confirm Administered Dose 1 gm .ROUTE .STK-MED ONE Stop: 09/10/20 13:17 Bupivacaine HCl (Bupivacaine 0.5% 30 Ml Sdv) Confirm Administered Dose 30 ml .ROUTE .STK-MED ONE Stop: 09/10/20 16:33 Fentanyl (Fentanyl 100 Mcg/2 Ml Sdv) Confirm Administered Dose 100 mcg .ROUTE .STK-MED ONE Stop: 09/10/20 15:00 Fentanyl (Fentanyl 100 Mcg/2 Ml Sdv) Confirm Administered Dose 100 mcg .ROUTE .STK-MED ONE Stop: 09/10/20 16:33 Ampicillin Sodium 2 gm/ Sodium (Chloride) 100 mls @ 200 mls/hr IV ONETIME ONE Stop: 09/10/20 09:11 Last Admin: 09/10/20 09:22 Dose: 200 mls/hr Documented by: Sodium Chloride (Normal Saline) Confirm Administered Dose 50 mls @ as directed .ROUTE .STK-MED ONE Stop: 09/10/20 13:18 Ropivacaine (Naropin 0.2%) Confirm Administered Dose 100 mls @ as directed .ROUTE .STK-MED ONE Stop: 09/10/20 15:01 Lidocaine/Epinephrine (Lidocaine 2% With Epinephrine 1:200,000 20 Ml Sdv) Confirm Administered Dose 20 ml .ROUTE .STK-MED ONE Stop: 09/10/20 15:28 - Problem List & Annotations (1) Vaginal delivery SNOMED Code(s): 943650520 Code(s): O80 - ENCOUNTER FOR FULL-TERM UNCOMPLICATED DELIVERY Status: Acute Current Visit: Yes - Problem List Review Problem List Initiated/Reviewed/Updated: Yes - My Orders Last 24 Hours: My Active Orders 09/10/20 08:48 Terbutaline [Brethine] 0.25 mg SUBCUT ASDIRECTED PRN 09/10/20 08:49 Bedrest Bathroom Privileges [RC] ASDIRECTED Communication Order [RC] ASDIRECTED Communication Order [RC] ASDIRECTED Notify Provider [RC] STAT 09/10/20 09:00 Oxytocin/0.9 % Sodium Chloride [Oxytocin 30 Unit/500 ML-NS] 30 unit in 500 ml IV TITRATE Medication Administration Instruction [OM.PC] Q3H 09/10/20 09:30 Insulin Regular, Human [NovoLIN R] 100 unit Sodium Chloride 0.9% [Normal Saline] 99 ml IV TITRATE 09/10/20 17:46 Patient Status [ADT] Routine May Shower [RC] ASDIRECTED Up ad Josefina [RC] ASDIRECTED Vital Signs [RC] PER UNIT ROUTINE Acetaminophen [Tylenol Extra Strength] 1,000 mg PO Q4H PRN Acetaminophen [Tylenol Extra Strength] 500 mg PO Q4H PRN Benzocaine/Menthol [Dermoplast Pain Relief 20%-0.5% Martha] 78 gm TOP ASDIRECTED PRN Docusate Sodium [Colace] 100 mg PO BID PRN Ibuprofen [Motrin] 400 mg PO Q4H PRN Ibuprofen [Motrin] 800 mg PO Q6H PRN Lanolin [Lansinoh HPA] See Dose Instructions TOP ASDIRECTED PRN bisacodyL [Dulcolax] 10 mg RECTAL ONETIME PRN oxyCODONE 5 mg PO Q2H PRN witch Traci [Tucks] 1 pad TOP ASDIRECTED PRN Assess Lochia [WOMSER] Per Unit Routine Assess Uterine Involution [WOMSER] Per Unit Routine Peripheral IV Discontinue [OM.PC] Routine Resuscitation Status Routine 09/11/20 05:11 HEMOGLOBIN/HEMATOCRIT,HH [HEME] Timed 09/11/20 07:00 GLUCOSE FASTING [CHEM] Routine - Assessment Assessment:: 25yo now P2 s/p PPD0 GDMA2 - Plan Plan:: Routine cares RH positive Rubella Immune GBS negative received adequate prophylaxis Elevated BP will do PIH labs
[2020-09-10 19:11] LABS: BLOOD UREA NITROGEN,BUN 9 mg/dL (7.0-18.0); CARBON DIOXIDE,CO2 21.7 mmol/L (21.0-32.0); CHLORIDE,CL 104 mmol/L (98-107); GLUCOSE RANDOM 81 mg/dL (74-106); SODIUM,NA 134 mmol/L (136-145)
[2020-09-10] MEDS: Acetaminophen 500 MG Tab PO PRN ×2 (19:24→23:56)
[2020-09-11] MEDS: oxyCODONE 5 MG Tab PO PRN ×2 (02:57→09:21)
--- NOTE | 2020-09-11 07:11 | PCM48HPAN ---
Post Anesthesia Note - EVALUATION WITHIN 48HRS OF ANESTHETIC Vital Signs in Normal Range: Yes Patient Participated in Evaluation: Yes Respiratory Function Stable: Yes Airway Patent: Yes Cardiovascular Function Stable: Yes Hydration Status Stable: Yes Pain Control Satisfactory: Yes Nausea and Vomiting Control Satisfactory: Yes Mental Status Recovered: Yes Vital Signs: Last Vital Signs Temp 36.6 C 09/11/20 04:00 Pulse 100 09/11/20 04:00 Resp 16 09/11/20 04:00 BP 129/76 09/11/20 04:00 Pulse Ox 95 09/11/20 04:00
[2020-09-11] MEDS: Ibuprofen 800 MG Tab PO PRN ×2 (07:45→15:24)
--- NOTE | 2020-09-11 07:59 | OR ---
SURGEON: KIP DICKEY DATE OF PROCEDURE: 09/10/2020 PREOPERATIVE DIAGNOSES: A 25-year-old G2, P1-0-0-1 at 39 weeks and 1 day for induction of labor secondary to gestational diabetes mellitus A2. POSTOPERATIVE DIAGNOSES: 1. A 25-year-old G2, P1-0-0-1 at 39 weeks and 1 day for induction of labor secondary to gestational diabetes mellitus A2. 2. Increased blood pressure noted intrapartum . ESTIMATED BLOOD LOSS: 300 mL. INTRAVENOUS FLUIDS: Pitocin running. Also tranexamic acid was given. PROCEDURE Normal spontaneous vaginal delivery Repair of second degree perineal laceration NOTES AND FINDINGS: A live male delivered at 1646, scores of 8 and 9. Weight is 3360 g. BRIEF HISTORY AND PROCEDURE: She is a 25-year-old GDMA2, managed with insulin. She came in for induction of labor. Induction of labor was started with Pitocin after she received 1 dose of GBS prophylaxis antibiotic. She then was AROMed after the second dose of the antibiotic. When she was AROMed, she was 3, 50, - 2. The patient then had a normal quick progress and became fully dilated. I was informed, and the patient had delivered about 5 minutes before i got to the room.RN Fiorella was present for the delivery. The was on maternal abdomen. The cord was already clamped and cut by the nurse, Fiorella. Placenta was then delivered by me via controlled cord traction. The perineum was inspected. A second-degree laceration was noted, and the area was infiltrated with 1% lidocaine, and repaired with 3.0 monocryl . Uterus was noted to have some clots in the lower uterine segment. Bimanual massaged was done. Tranexamic acid was given. The patient tolerated the procedure well. All instrument and pad counts were correct x2. FILOMENA / JUAN RAMON /[id number] MTDD
[2020-09-11] MEDS: Acetaminophen 500 MG Tab PO PRN (11:41)
--- NOTE | 2020-09-11 13:18 | PCM.PNPP ---
- General Info Date of Service: 09/11/20 Subjective Update: Patient seen at bedside , complains of increased lochia and occasional cramping . she has not been ambulating alot She is breasfeeding, BP is normal Functional Status: Reports: Pain Controlled, Tolerating Diet, Ambulating, Urinating - Review of Systems General: Reports: No Symptoms HEENT: Reports: No Symptoms Pulmonary: Reports: No Symptoms Cardiovascular: Reports: No Symptoms Gastrointestinal: Reports: No Symptoms Genitourinary: Reports: No Symptoms Musculoskeletal: Reports: No Symptoms Skin: Reports: No Symptoms Neurological: Reports: No Symptoms Psychiatric: Reports: No Symptoms - General Info Date of Service: 09/11/20 - Patient Data Vital Signs - Most Recent: Last Vital Signs Temp 37.0 C 09/11/20 08:03 Pulse 106 H 09/11/20 08:03 Resp 16 09/11/20 08:03 BP 126/81 09/11/20 08:03 Pulse Ox 96 09/11/20 08:03 Weight - Most Recent: 87.997 kg Lab Results - Last 24 Hours: Laboratory Results - last 24 hr 09/10/20 09/10/20 09/10/20 Range/Units 14:22 16:00 18:10 WBC (4.0-11.0) K/uL RBC (4.30-5.90) M/uL Hgb (12.0-16.0) g/dL Hct (36.0-46.0) % MCV (80.0-98.0) fL MCH (27.0-32.0) pg MCHC (31.0-37.0) g/dL RDW Std Deviation (28.0-62.0) fl RDW Coeff of Oscar (11.0-15.0) % Plt Count (150-400) K/uL MPV (7.40-12.00) fL Neutrophils % (Manual) (48.0-80.0) % Band Neutrophils % % Lymphocytes % (Manual) (16.0-40.0) % Monocytes % (Manual) (0.0-15.0) % Eosinophils % (Manual) (0.0-7.0) % Nucleated RBC % /100WBC Absolute Seg Neuts (1.4-5.7) Band Neutrophils # Lymphocytes # (Manual) (0.6-2.4) Monocytes # (Manual) (0.0-0.8) Eosinophils # (Manual) (0.0-0.7) Sodium (136-145) mmol/L Potassium (3.5-5.1) mmol/L Chloride (98-107) mmol/L Carbon Dioxide (21.0-32.0) mmol/L BUN (7.0-18.0) mg/dL Creatinine (0.6-1.0) mg/dL Est Cr Clr Drug Dosing mL/min Estimated GFR (MDRD) ml/min Glucose (74-106) mg/dL POC Glucose 95 83 (60-110) mg/dL Fasting Glucose (74-106) mg/dL Calcium (8.5-10.1) mg/dL Total Bilirubin (0.2-1.0) mg/dL AST (15-37) IU/L ALT (14-63) IU/L Alkaline Phosphatase (46-116) U/L Total Protein (6.4-8.2) g/dL Albumin (3.4-5.0) g/dL Globulin (2.6-4.0) g/dL Albumin/Globulin Ratio (0.9-1.6) Ur Random Creatinine 62.8 mg/dL U Random Total Protein 14.7 H (<11.9) mg/dL Protein/Creatinin Ratio 0.2 09/10/20 09/10/20 09/11/20 Range/Units 18:41 18:41 05:15 WBC 16.31 H (4.0-11.0) K/uL RBC 4.06 L (4.30-5.90) M/uL Hgb 11.3 L 10.9 L (12.0-16.0) g/dL Hct 34.2 L 33.7 L (36.0-46.0) % MCV 84.2 (80.0-98.0) fL MCH 27.8 (27.0-32.0) pg MCHC 33.0 (31.0-37.0) g/dL RDW Std Deviation 44.0 (28.0-62.0) fl RDW Coeff of Oscar 14 (11.0-15.0) % Plt Count 169 (150-400) K/uL MPV 12.00 (7.40-12.00) fL Neutrophils % (Manual) 92 H (48.0-80.0) % Band Neutrophils % 1 % Lymphocytes % (Manual) 4 L (16.0-40.0) % Monocytes % (Manual) 2 (0.0-15.0) % Eosinophils % (Manual) 1 (0.0-7.0) % Nucleated RBC % 0.0 /100WBC Absolute Seg Neuts 15.0 H (1.4-5.7) Band Neutrophils # 0.2 Lymphocytes # (Manual) 0.7 (0.6-2.4) Monocytes # (Manual) 0.3 (0.0-0.8) Eosinophils # (Manual) 0.2 (0.0-0.7) Sodium 134 L (136-145) mmol/L Potassium 4.0 (3.5-5.1) mmol/L Chloride 104 (98-107) mmol/L Carbon Dioxide 21.7 (21.0-32.0) mmol/L BUN 9 (7.0-18.0) mg/dL Creatinine 0.6 (0.6-1.0) mg/dL Est Cr Clr Drug Dosing 139.38 mL/min Estimated GFR (MDRD) > 60.0 ml/min Glucose 81 (74-106) mg/dL POC Glucose (60-110) mg/dL Fasting Glucose (74-106) mg/dL Calcium 8.6 (8.5-10.1) mg/dL Total Bilirubin 0.2 (0.2-1.0) mg/dL AST 18 (15-37) IU/L ALT 12 L (14-63) IU/L Alkaline Phosphatase 196 H (46-116) U/L Total Protein 5.7 L (6.4-8.2) g/dL Albumin 2.3 L (3.4-5.0) g/dL Globulin 3.4 (2.6-4.0) g/dL Albumin/Globulin Ratio 0.7 L (0.9-1.6) Ur Random Creatinine mg/dL U Random Total Protein (<11.9) mg/dL Protein/Creatinin Ratio 09/11/ Range/Units 05:15 WBC (4.0-11.0) K/uL RBC (4.30-5.90) M/uL Hgb (12.0-16.0) g/dL Hct (36.0-46.0) % MCV (80.0-98.0) fL MCH (27.0-32.0) pg MCHC (31.0-37.0) g/dL RDW Std Deviation (28.0-62.0) fl RDW Coeff of Oscar (11.0-15.0) % Plt Count (150-400) K/uL MPV (7.40-12.00) fL Neutrophils % (Manual) (48.0-80.0) % Band Neutrophils % % Lymphocytes % (Manual) (16.0-40.0) % Monocytes % (Manual) (0.0-15.0) % Eosinophils % (Manual) (0.0-7.0) % Nucleated RBC % /100WBC Absolute Seg Neuts (1.4-5.7) Band Neutrophils # Lymphocytes # (Manual) (0.6-2.4) Monocytes # (Manual) (0.0-0.8) Eosinophils # (Manual) (0.0-0.7) Sodium (136-145) mmol/L Potassium (3.5-5.1) mmol/L Chloride (98-107) mmol/L Carbon Dioxide (21.0-32.0) mmol/L BUN (7.0-18.0) mg/dL Creatinine (0.6-1.0) mg/dL Est Cr Clr Drug Dosing mL/min Estimated GFR (MDRD) ml/min Glucose (74-106) mg/dL POC Glucose (60-110) mg/dL Fasting Glucose 77 (74-106) mg/dL Calcium (8.5-10.1) mg/dL Total Bilirubin (0.2-1.0) mg/dL AST (15-37) IU/L ALT (14-63) IU/L Alkaline Phosphatase (46-116) U/L Total Protein (6.4-8.2) g/dL Albumin (3.4-5.0) g/dL Globulin (2.6-4.0) g/dL Albumin/Globulin Ratio (0.9-1.6) Ur Random Creatinine mg/dL U Random Total Protein (<11.9) mg/dL Protein/Creatinin Ratio Med Orders - Current: Current Medications Acetaminophen (Acetaminophen 500 Mg Tab) 500 mg PO Q4H PRN PRN Reason: Pain Acetaminophen (Acetaminophen 500 Mg Tab) 1,000 mg PO Q4H PRN PRN Reason: Pain Last Admin: 09/11/20 11:41 Dose: 1,000 mg Documented by: Benzocaine/Menthol (Benzocaine/Menthol 20%-0.5% [place] 78 Gm Cannister) 78 gm TOP ASDIRECTED PRN PRN Reason: Perineal Comfort Measure Last Admin: 09/10/20 19:29 Dose: 1 canister Documented by: Bisacodyl (Bisacodyl 10 Mg Supp) 10 mg RECTAL ONETIME PRN PRN Reason: Constipation Butorphanol Tartrate (Butorphanol 1 Mg/Ml Sdv) 1 mg IVPUSH Q1H PRN PRN Reason: Pain Carboprost Tromethamine (Carboprost Tromethamine 250 Mcg/1 Ml Amp) 250 mcg IM ASDIRECTED PRN PRN Reason: Post Hemorrhage Docusate Sodium (Docusate Sodium 100 Mg Cap) 100 mg PO BID PRN PRN Reason: Constipation Last Admin: 09/10/20 19:28 Dose: 100 mg Documented by: Emollient Ointment (Lanolin 100% Cream 7 Gm Tube) 0 gm TOP ASDIRECTED PRN PRN Reason: Sore Nipples Last Admin: 09/10/20 19:29 Dose: 7 gm Documented by: Oxytocin/Sodium Chloride (Oxytocin 30 Unit/500 Ml-Ns) 30 unit in 500 mls @ 500 mls/hr IV TITRATE MADIHA Last Admin: 09/10/20 17:35 Dose: 250 mls/hr Documented by: Tranexamic Acid 1,000 mg/ (Sodium Chloride) 110 mls @ 660 mls/hr IV ONETIME PRN PRN Reason: Bleeding Last Admin: 09/10/20 17:29 Dose: 660 mls/hr Documented by: Lactated Ringer's (Ringers, Lactated) 1,000 mls @ 150 mls/hr IV ASDIRECTED MADIHA Last Admin: 09/10/20 15:17 Dose: 150 mls/hr Documented by: Insulin Human Regular 100 unit (/ Sodium Chloride) 100 mls @ 1 mls/hr IV TITRATE MADIHA; Protocol Oxytocin/Sodium Chloride (Oxytocin 30 Unit/500 Ml-Ns) 30 unit in 500 mls @ 2 mls/hr IV TITRATE MADIHA; Protocol Last Titration: 09/10/20 17:13 Dose: 999 munits/min, 999 mls/hr Documented by: Ampicillin Sodium 1 gm/ Sodium (Chloride) 50 mls @ 100 mls/hr IV Q4H MADIHA Last Admin: 09/10/20 13:15 Dose: 100 mls/hr Documented by: Ibuprofen (Ibuprofen 400 Mg Tab) 400 mg PO Q4H PRN PRN Reason: Pain Ibuprofen (Ibuprofen 800 Mg Tab) 800 mg PO Q6H PRN PRN Reason: Pain Last Admin: 09/11/20 07:45 Dose: 800 mg Documented by: Lidocaine HCl (Lidocaine 1% 50 Ml Mdv) 50 ml INJECT ONETIME PRN PRN Reason: Laceration repair Last Admin: 09/10/20 17:10 Dose: 50 ml Documented by: Methylergonovine Maleate (Methylergonovine 0.2 Mg/1 Ml Amp) 0.2 mg IM ASDIRECTED PRN PRN Reason: Post Hemorrhage Misoprostol (Misoprostol 200 Mcg Tab) 200 mcg PO ONETIME PRN PRN Reason: Post Hemorrhage Nalbuphine HCl (Nalbuphine 10 Mg/1 Ml Vial) 10 mg IVPUSH Q1H PRN PRN Reason: Pain (severe 7-10) Oxycodone HCl (Oxycodone 5 Mg Tab) 5 mg PO Q2H PRN PRN Reason: Pain Last Admin: 09/11/20 09:21 Dose: 5 mg Documented by: Sodium Chloride (Sodium Chloride 0.9% 2.5 Ml Syringe) 2.5 ml FLUSH ASDIRECTED PRN PRN Reason: Keep Vein Open Sodium Chloride (Sodium Chloride 0.9% 10 Ml Sdv) 10 ml IV ASDIRECTED PRN PRN Reason: IV Use Sterile Water (Water For Irrigation,Sterile 1,000 Ml Container) 1,000 ml IRR ASDIRECTED PRN PRN Reason: delivery Terbutaline Sulfate (Terbutaline 1 Mg/Ml Sdv) 0.25 mg SUBCUT ASDIRECTED PRN PRN Reason: Tacysystole Witch Traci (Witch Traci Medicated Pads 40/Jar) 1 pad TOP ASDIRECTED PRN PRN Reason: comfort care Last Admin: 09/10/20 19:28 Dose: 1 tub Documented by: Discontinued Medications Ampicillin Sodium (Ampicillin 1 Gm Vial) Confirm Administered Dose 1 gm .ROUTE .STK-MED ONE Stop: 09/10/20 13:17 Bupivacaine HCl (Bupivacaine 0.5% 30 Ml Sdv) Confirm Administered Dose 30 ml .ROUTE .STK-MED ONE Stop: 09/10/20 16:33 Fentanyl (Fentanyl 100 Mcg/2 Ml Sdv) Confirm Administered Dose 100 mcg .ROUTE .STK-MED ONE Stop: 09/10/20 15:00 Fentanyl (Fentanyl 100 Mcg/2 Ml Sdv) Confirm Administered Dose 100 mcg .ROUTE .STK-MED ONE Stop: 09/10/20 16:33 Ampicillin Sodium 2 gm/ Sodium (Chloride) 100 mls @ 200 mls/hr IV ONETIME ONE Stop: 09/10/20 09:11 Last Admin: 09/10/20 09:22 Dose: 200 mls/hr Documented by: Sodium Chloride (Normal Saline) Confirm Administered Dose 50 mls @ as directed .ROUTE .STK-MED ONE Stop: 09/10/20 13:18 Ropivacaine (Naropin 0.2%) Confirm Administered Dose 100 mls @ as directed .ROUTE .STK-MED ONE Stop: 09/10/20 15:01 Lidocaine/Epinephrine (Lidocaine 2% With Epinephrine 1:200,000 20 Ml Sdv) Confirm Administered Dose 20 ml .ROUTE .STK-MED ONE Stop: 09/10/20 15:28 - Infant Interaction Support Person: - Recovery Exam Fundal Tone: Firm Fundal Level: At Umbilicus Fundal Placement: Midline Lochia Amount: Small Lochia Color: Rubra/Red Perineum Description: Other (see below) Other Perinuem Description: Second degree tear,repaired Episiotomy/Laceration: Approximated Bladder Status: Voiding Urinary Elimination: Voided - Exam General: Alert HEENT: Pupils Equal Lungs: Clear to Auscultation Cardiovascular: Regular Rate, Regular Rhythm GI/Abdominal Exam: Normal Bowel Sounds Extremities: Normal Inspection Neurological: No New Focal Deficit Psy/Mental Status: Alert - Problem List & Annotations (1) Vaginal delivery SNOMED Code(s): 369136442 Code(s): O80 - ENCOUNTER FOR FULL-TERM UNCOMPLICATED DELIVERY Status: Acute Current Visit: Yes - Problem List Review Problem List Initiated/Reviewed/Updated: Yes - My Orders Last 24 Hours: My Active Orders 09/10/20 17:46 Patient Status [ADT] Routine Vital Signs [RC] PER UNIT ROUTINE Acetaminophen [Tylenol Extra Strength] 1,000 mg PO Q4H PRN Acetaminophen [Tylenol Extra Strength] 500 mg PO Q4H PRN Benzocaine/Menthol [Dermoplast Pain Relief 20%-0.5% [place]] 78 gm TOP ASDIRECTED PRN Docusate Sodium [Colace] 100 mg PO BID PRN Ibuprofen [Motrin] 400 mg PO Q4H PRN Ibuprofen [Motrin] 800 mg PO Q6H PRN Lanolin [Lansinoh HPA] See Dose Instructions TOP ASDIRECTED PRN bisacodyL [Dulcolax] 10 mg RECTAL ONETIME PRN oxyCODONE 5 mg PO Q2H PRN witch Traci [Tucks] 1 pad TOP ASDIRECTED PRN Assess Lochia [WOMSER] Per Unit Routine Assess Uterine Involution [WOMSER] Per Unit Routine Peripheral IV Discontinue [OM.PC] Routine Resuscitation Status Routine - Assessment Assessment:: 25yo now P2 s/p PPD1 GDMA2 BP normalized Mild anemia hemoglobin 10 from 12 , asymptomatic - Plan Plan:: Routine cares Fasting 77mg/dl RH positive Rubella Immune PIH labs reviewed wnl H/H mild decrease Lysteda 1300mg X 1 dose to help with coagulation and bleeding Pain control as need Discharge home today
[2020-09-11] MEDS ORDERED: Methylergonovine 0.2 MG Tab PO ONE (13:20)
== END 2020-09-11 21:20 | disposition home or self-care (01) | DRG 560 ==
LOC: MW.OB 08:22 → OBSVTOIN 16:46 → MW.OB 19:58
PROVIDERS: ADMIT Obstetrics & Gynecology; ATTEND Obstetrics & Gynecology
PROC: 10E0XZZ Delivery of Products of Conception, External Approach (ICD-10-PCS; principal; 2020-09-10)
PROC: 10907ZC Drainage of Amniotic Fluid, Therapeutic from Products of Conception, Via Natural or Artificial Opening (ICD-10-PCS; 2020-09-10)
PROC: 0KQM0ZZ Repair Perineum Muscle, Open Approach (ICD-10-PCS; 2020-09-10)
PROC: 3E0R3BZ Introduction of Anesthetic Agent into Spinal Canal, Percutaneous Approach (ICD-10-PCS; 2020-09-10)
PROC: 00HU33Z Insertion of Infusion Device into Spinal Canal, Percutaneous Approach (ICD-10-PCS; 2020-09-10)
DX: O24.424 Gestational diabetes mellitus in childbirth, insulin controlled (principal); Z37.0 Single live birth; O99.02 Anemia complicating childbirth; D64.9 Anemia, unspecified; O99.824 Streptococcus B carrier state complicating childbirth; O70.1 Second degree perineal laceration during delivery; Z20.822 Contact with and (suspected) exposure to COVID-19; Z3A.39 39 weeks gestation of pregnancy
CPT/HCPCS: 36415; 51701; 59025; 59409; 80053; 82570; 82947; 82962; 84156; 85007; 85014; 85018; 85027; 86592; 86850; 86900; 86901; A9270-GY; J0290; J1815-GY; J2001; J2590; J2795; J3010; J3490; J7120; U0002

== ENCOUNTER 2022-04-14 13:37 | Emergency (ER) | payer BC ==
[2022-04-14] MEDS ORDERED: Orphenadrine 60 MG/2 ML Inj IM ONE (19:35)
[2022-04-14] MEDS ORDERED: Ketorolac 60 MG/2 ML SDV IM ONE (19:35)
== END 2022-04-14 20:12 | disposition home or self-care (01) ==
LOC: MW.ED 13:37
DX: M62.838 Other muscle spasm (principal); Z88.1 Allergy status to other antibiotic agents; Z91.018 Allergy to other foods; Z79.899 Other long term (current) drug therapy; Z86.16 Personal history of COVID-19
CPT/HCPCS: 81025; 96372; 99283; J1885; J2360; 99282

== ENCOUNTER 2023-02-27 10:36 | Day surgery (SDC) | payer BC ==
[~2023-02-27 10:36] MED LIST: Acetaminophen 1,000 MG in Premix Bag 1 BAG IV SCH; Lactated Ringers 1,000 ML IV SCH; Pregabalin 75 MG Cap PO SCH; ceFAZolin 2 GM in Sodium Chloride 0.9% 50 ML IV ONE
[2023-02-27] MEDS ORDERED: Propofol 200 MG/20 ML SDV ONE (13:41)
[2023-02-27] MEDS ORDERED: Ondansetron 4 MG/2 ML SDV ONE (13:41)
[2023-02-27] MEDS ORDERED: Dexamethasone 4 MG/ML 5 ML MDV ONE (13:41)
[2023-02-27] MEDS ORDERED: Lidocaine 2% 5 ML SDV ONE (13:41)
[2023-02-27] MEDS ORDERED: Ketorolac 30 MG/ML SDV ONE (13:41)
[2023-02-27] MEDS ORDERED: fentaNYL 100 MCG/2 ML SDV ONE (13:41)
[2023-02-27] MEDS ORDERED: Sugammadex Sodium 200 MG/2 ML VIAL ONE (13:41)
[2023-02-27] MEDS ORDERED: Rocuronium Bromide 50 MG/5 ML Syringe ONE (13:41)
[2023-02-27] MEDS ORDERED: Bupivacaine 0.5% 30 ML SDV ONE (13:47)
[2023-02-27] MEDS ORDERED: ceFAZolin 1 GM Vial ONE (14:14)
== END 2023-02-27 16:10 | disposition home or self-care (01) ==
LOC: MW.SDS 10:36
PROVIDERS: ATTEND Surgery
DX: L05.91 Pilonidal cyst without abscess (principal); F41.9 Anxiety disorder, unspecified; K58.9 Irritable bowel syndrome, unspecified; F32.A Depression, unspecified; Z88.1 Allergy status to other antibiotic agents
CPT/HCPCS: 11772; 81025; A9270; J0690; J1100; J1885; J2405; J2704; J3010; J3490; J7120

== ENCOUNTER 2024-05-09 12:44 | Inpatient (IN) | payer BC ==
[2024-05-09] MEDS ORDERED: Misoprostol 200 MCG Tab PO PRN (13:50)
[2024-05-09] MEDS ORDERED: Misoprostol 25 MCG (1/4 of 100 MCG) Tab VAG PRN (13:50)
[2024-05-09] MEDS ORDERED: Terbutaline 1 MG/ML SDV SUBCUT PRN (13:50)
[2024-05-09] MEDS ORDERED: Sodium Chloride 0.9% 20 ML SDV IV PRN (13:50)
[2024-05-09] MEDS ORDERED: Sodium Chloride 0.9% 2.5 ML Syringe FLUSH PRN (13:50)
[2024-05-09] MEDS ORDERED: Carboprost Tromethamine 250 MCG/1 mL Vial IM PRN (13:50)
[2024-05-09 14:02] LABS: HEMOGLOBIN 13.2 g/dL (12.0-16.0); MEAN CORPUSCULAR HEMOGLOBIN 29.7 pg (28.0-32.0); MEAN CORPUSCULAR HGB CONC 33.8 g/dL (32.0-36.0); MEAN CORPUSCULAR VOLUME 87.6 fL (83.0-99.0); MEAN PLATELET VOLUME 11.8 fL (9.4-12.3); PLATELET COUNT,PLT 182 K/uL (150-400); RED BLOOD CELL COUNT 4.45 M/uL (4.10-5.30); WHITE BLOOD CELL COUNT,WBC 11.74 K/uL (3.9-11.3)
[2024-05-09 14:08] LABS: CALCIUM 9.5 mg/dL (8.5-10.1); CARBON DIOXIDE,CO2 21.6 mmol/L (21.0-32.0); CREATININE 0.7 mg/dL (0.6-1.0); EST CRCL DRUG DOSING (CG) 115.32 mL/min
[2024-05-09] MEDS: Sodium Chloride 0.9% 1,000 ML IV SCH (14:29)
[2024-05-09] MEDS: Oxytocin/0.9 % Sodium Chloride 30 UNIT/500 ML BAG IV SCH (14:30)
[2024-05-09] MEDS: Butorphanol 2 MG/ML SDV IVPUSH PRN (18:53)
[2024-05-09] MEDS: Sodium Chloride 0.9% 10 ML Syringe FLUSH PRN (18:56)
[2024-05-09] MEDS: Water For Irrigation,Sterile 1,000 ML Container IRR PRN (19:45)
[2024-05-09] MEDS: Lidocaine 1% 50 ML MDV INJECT PRN (19:50)
[2024-05-09] MEDS ORDERED: Docusate Sodium 100 MG Cap PO PRN (20:10)
[2024-05-09] MEDS ORDERED: Simethicone 80 MG Tab.Chew PO PRN (20:10)
[2024-05-09 20:35] LABS: PH,UMBILICAL ARTERIAL 7.348 (7.18-7.38); PH,UMBILICAL VENOUS 7.333 (7.25-7.45)
[2024-05-09] MEDS: Methylergonovine 0.2 MG/1 ML Amp IM PRN (20:56)
[2024-05-09] MEDS: Acetaminophen 500 MG Tab PO PRN (20:56)
[2024-05-09] MEDS: Misoprostol 200 MCG Tab RECTAL PRN (20:56)
[2024-05-09] MEDS: Tranexamic Acid in NACL,ISO-OS 100 ML ONE (21:30)
[2024-05-09] MEDS: Morphine 4 MG/ML Syringe IVPUSH ONE (21:36)
[2024-05-09 22:17] LABS: BASOPHILS ABSOLUTE AUTO 0.05 K/uL (0.00-0.20); BASOPHILS PERCENT AUTO 0.3 % (0.0-1.0); EOSINOPHILS ABSOLUTE AUTO 0.02 K/uL (0.00-0.45); EOSINOPHILS PERCENT AUTO 0.1 % (0.0-6.0); HEMATOCRIT 35.9 % (37.0-47.0); HEMOGLOBIN 12.3 g/dL (12.0-16.0); IMMATURE GRAN ABSOLUTE AUTO 0.07 K/uL (0.00-0.05); IMMATURE GRAN PERCENT AUTO 0.4 % (0.0-0.4); LYMPHOCYTES ABSOLUTE AUTO 1.46 K/uL (1.00-4.80); LYMPHOCYTES PERCENT AUTO 8.1 % (24.0-44.0); MEAN CORPUSCULAR HEMOGLOBIN 30.1 pg (28.0-32.0); MEAN CORPUSCULAR HGB CONC 34.3 g/dL (32.0-36.0); MEAN CORPUSCULAR VOLUME 87.8 fL (83.0-99.0); MEAN PLATELET VOLUME 11.5 fL (9.4-12.3); MONOCYTES ABSOLUTE AUTO 0.73 K/uL (0.00-0.80); MONOCYTES PERCENT AUTO 4.1 % (0.0-8.0); NEUTROPHILS ABSOLUTE AUTO 15.67 K/uL (1.80-7.70); PLATELET COUNT,PLT 158 K/uL (150-400); RED BLOOD CELL COUNT 4.09 M/uL (4.10-5.30)
[2024-05-09 22:32] LABS: INR 0.99 (0.86-1.11); PTT,PARTIAL THROMBOPLSTIN TIME 28.4 SEC (23.9-30.7)
[2024-05-09 22:50] LABS: A/G RATIO 0.9 (0.9-1.6); ALBUMIN 2.8 g/dL (3.4-5.0); BILIRUBIN TOTAL 0.4 mg/dL (0.2-1.0); CALCIUM 8.7 mg/dL (8.5-10.1); CARBON DIOXIDE,CO2 22.9 mmol/L (21.0-32.0); CREATININE 0.7 mg/dL (0.6-1.0); EST CRCL DRUG DOSING (CG) 115.32 mL/min; POTASSIUM,K 4.4 mmol/L (3.5-5.1); PROTEIN TOTAL,TP 5.9 g/dL (6.4-8.2)
[2024-05-09] MEDS: ceFAZolin 2 GM in Sodium Chloride 0.9% 50 ML IV SCH (22:53)
[2024-05-10] MEDS: Ketorolac 30 MG/ML SDV IVPUSH STA (00:23)
[2024-05-10] MEDS: Oxytocin/0.9 % Sodium Chloride 30 UNIT/500 ML BAG IV SCH (01:30)
[2024-05-10] MEDS: Benzocaine/Menthol 20%-0.5% Spray 78 GM Cannister TOP PRN (06:52)
[2024-05-10] MEDS: Witch Hazel Medicated Pads 40/Jar TOP PRN (06:52)
[2024-05-10] MEDS: Lanolin 100% Cream 7 GM Tube TOP PRN (06:52)
[2024-05-10] MEDS: Tranexamic Acid in NACL,ISO-OS 1,000 MG/100 ML Bag IV ONE (07:04)
[2024-05-10 07:07] LABS: HEMOGLOBIN 10.2 g/dL (12.0-16.0); MEAN CORPUSCULAR HEMOGLOBIN 30.1 pg (28.0-32.0); MEAN CORPUSCULAR VOLUME 88.5 fL (83.0-99.0); MEAN PLATELET VOLUME 11.6 fL (9.4-12.3); PLATELET COUNT,PLT 143 K/uL (150-400); RED BLOOD CELL COUNT 3.39 M/uL (4.10-5.30); WHITE BLOOD CELL COUNT,WBC 12.59 K/uL (3.9-11.3)
[2024-05-10] MEDS: Morphine 4 MG/ML Syringe IM ONE (08:51)
[2024-05-10] MEDS: Morphine 4 MG/ML Syringe ONE (08:51)
[2024-05-10] MEDS: Prenatal Multivitamin with Calcium/Folic Acid/Iron Tab PO SCH (09:30)
[2024-05-10] MEDS: Sertraline 25 MG Tab PO SCH (09:30)
[2024-05-10] MEDS: Ferrous Sulfate 325 MG Tab PO SCH (09:30)
[2024-05-10] MEDS: Ondansetron 4 MG/2 ML SDV IVPUSH PRN (09:30)
[2024-05-10] MEDS: Ibuprofen 800 MG Tab PO PRN (10:36)
[2024-05-10] MEDS: Ondansetron 4 MG Tab.DIS PO PRN (20:47)
== END 2024-05-11 13:09 | disposition home or self-care (01) | DRG 542 ==
LOC: MW.OB 12:44 → OBSVTOIN 19:55 → MW.OB 19:55
PROVIDERS: ADMIT Obstetrics & Gynecology; ATTEND Obstetrics & Gynecology
PROC: 10E0XZZ Delivery of Products of Conception, External Approach (ICD-10-PCS; principal; 2024-05-09)
PROC: 10907ZC Drainage of Amniotic Fluid, Therapeutic from Products of Conception, Via Natural or Artificial Opening (ICD-10-PCS; 2024-05-09)
PROC: 3E033VJ Introduction of Other Hormone into Peripheral Vein, Percutaneous Approach (ICD-10-PCS; 2024-05-09)
PROC: 0HQ9XZZ Repair Perineum Skin, External Approach (ICD-10-PCS; 2024-05-09)
PROC: 0W3R7ZZ Control Bleeding in Genitourinary Tract, Via Natural or Artificial Opening (ICD-10-PCS; 2024-05-09)
PROC: 3E0P7VZ Introduction of Hormone into Female Reproductive, Via Natural or Artificial Opening (ICD-10-PCS; 2024-05-09)
DX: O24.420 Gestational diabetes mellitus in childbirth, diet controlled (principal); Z37.0 Single live birth; D62 Acute posthemorrhagic anemia; O72.1 Other immediate postpartum hemorrhage; F34.1 Dysthymic disorder; O99.344 Other mental disorders complicating childbirth; O90.81 Anemia of the puerperium; O70.0 First degree perineal laceration during delivery; Z3A.39 39 weeks gestation of pregnancy; Z88.0 Allergy status to penicillin
CPT/HCPCS: 36415; 51702; 59025; 59409; 59899; 80048; 80053; 82803; 85025; 85027; 85384; 85610; 85730; 86592; 86850; 86900; 86901; A9270-GY; J0595; J0690; J1885; J2210; J2270; J2405; J2590; J3490; J7030